=== PATIENT | male | born 1970 | race Two or more races ===

== ENCOUNTER 2020-07-22 07:35 | Emergency (ER) | payer MEDICARE, OTHER ==
[~2020-07-22] VITALS: Ht 172.7 cm; Wt 86.2 kg
[2020-07-22] MEDS ORDERED: WELLBUTRIN (07:44)
[2020-07-22] MEDS ORDERED: LISINOPRIL (07:44)
[2020-07-22] MEDS ORDERED: KLONOPIN (07:44)
[2020-07-22] MEDS ORDERED: LORAZEPAM 2 MG/1 ML VIAL IV ONE (08:00)
[2020-07-22] MEDS ORDERED: IV NORMAL SALINE 1000 ML BAG IV ONE (08:00)
[2020-07-22 08:01] LABS: BASOPHILS % (AUTO) 0.7 % (0.0-2.0); EOSINOPHILS # (AUTO) 0.2 K/uL (0.0-0.7); EOSINOPHILS % (AUTO) 3.4 % (0.0-7.0); HEMATOCRIT 43.2 % (36.7-47.1); HEMOGLOBIN 14.7 g/dL (12.5-16.3); LYMPHOCYTES # (AUTO) 1.6 K/uL (20.0-40.0); LYMPHOCYTES % (AUTO) 21.4 % (20.5-51.5); MEAN CORPUSCULAR HEMOGLOBIN 30.5 uug (23.8-33.4); MEAN CORPUSCULAR HGB CONC 34 g/dL (32.5-36.3); MEAN CORPUSCULAR VOLUME 89.5 fL (73.0-96.2); MONOCYTES # (AUTO) 0.5 K/uL (2.0-10.0); MONOCYTES % (AUTO) 7.1 % (0.0-11.0); NEUTROPHILS # (AUTO) 4.9 K/uL (1.8-8.9); NEUTROPHILS % (AUTO) 67.4 % (38.5-71.5); PLATELET COUNT (AUTO) 341 K/uL (152-348); RED BLOOD CELL COUNT(AUTO) 4.83 MIL/uL (4.06-5.63); WHITE BLOOD COUNT (AUTO) 7.3 K/uL (3.6-10.2)
[2020-07-22] MEDS ORDERED: LORAZEPAM 2 MG/1 ML VIAL ONE (08:08)
[2020-07-22 08:13] LABS: BILIRUBIN,DIRECT 0.1 mg/dL (0.0-0.2); BILIRUBIN,TOTAL 0.5 mg/dL (0.2-1.0); CREATININE 1.5 mg/dL (0.6-1.3); POTASSIUM 4.2 mmol/L (3.5-5.1); TOTAL PROTEIN, SERUM 7.8 g/dL (6.4-8.2)
--- NOTE | 2020-07-22 08:31 | NUR ---
Patient discharged to home in stable condition. Written and verbal after care instructions given. Patient verbalizes understanding of instructions. Stressed follow up or return to ER for worsening s/s. pt walks in steady gait. pt deneis any pain or dizziness. pt will use [employer] to go home.
[2020-07-22 08:32] VITALS: BP 121/81
== END 2020-07-22 08:35 | disposition home or self-care (01) ==
LOC: ER 07:35
DX: G40.909 Epilepsy, unspecified, not intractable, without status epilepticus (principal); R94.31 Abnormal electrocardiogram [ECG] [EKG]; R00.0 Tachycardia, unspecified; F32.9 Major depressive disorder, single episode, unspecified; Z79.899 Other long term (current) drug therapy; Z91.14 Patient's other noncompliance with medication regimen
CPT/HCPCS: 36415; 80048; 80076; 83690; 84484; 85025; 93005; 96374; 99284; J2060; 70030-TC; A4663; J7030

== ENCOUNTER 2020-11-13 13:57 | Emergency (ER) | payer MEDICARE, OTHER ==
[~2020-11-13] VITALS: Ht 182.9 cm; Wt 79.4 kg
[~2020-11-13 13:57] MED LIST: KLONOPIN; LISINOPRIL; WELLBUTRIN
--- NOTE | 2020-11-13 14:14 | NUR ---
at bedside for assessment
[2020-11-13] MEDS ORDERED: LORAZEPAM 0.5 MG TABLET PO ONE (14:15)
[2020-11-13] MEDS ORDERED: LORAZEPAM 1 MG TABLET ONE (14:29)
[2020-11-13 14:37] LABS: BASOPHILS # (AUTO) 0.1 K/uL (0.0-8.0); BASOPHILS % (AUTO) 0.8 % (0.0-2.0); EOSINOPHILS # (AUTO) 0.5 K/uL (0.0-0.7); EOSINOPHILS % (AUTO) 5.7 % (0.0-7.0); HEMATOCRIT 41.4 % (36.7-47.1); HEMOGLOBIN 14.3 g/dL (12.5-16.3); LYMPHOCYTES # (AUTO) 2.8 K/uL (20.0-40.0); MEAN CORPUSCULAR HGB CONC 35 g/dL (32.5-36.3); MEAN CORPUSCULAR VOLUME 86.7 fL (73.0-96.2); MONOCYTES # (AUTO) 0.9 K/uL (2.0-10.0); MONOCYTES % (AUTO) 9.6 % (0.0-11.0); NEUTROPHILS # (AUTO) 4.6 K/uL (1.8-8.9); NEUTROPHILS % (AUTO) 51.9 % (38.5-71.5); PLATELET COUNT (AUTO) 323 K/uL (152-348); RED BLOOD CELL COUNT(AUTO) 4.77 MIL/uL (4.06-5.63); WHITE BLOOD COUNT (AUTO) 8.9 K/uL (3.6-10.2)
[2020-11-13 14:40] LABS: CREATININE 1.2 mg/dL (0.6-1.3); POTASSIUM 4.3 mmol/L (3.5-5.1)
--- NOTE | 2020-11-13 15:27 | NUR ---
Patient discharged to home in stable condition. No signs of acute distress Written and verbal after care instructions given. Took all belongings, not ambulating wiht steady gait. Patient verbalizes understanding of instructions. Stressed follow up or return to ER for worsening s/s.
[2020-11-13 15:29] VITALS: BP 124/79
--- NOTE | 2020-11-13 15:29 | NUR ---
Patient discharged to home in stable condition. Written and verbal after care instructions given. Patient verbalizes understanding of instructions. Stressed follow up or return to ER for worsening s/s.
== END 2020-11-13 15:29 | disposition home or self-care (01) ==
LOC: ER 13:57
DX: F41.9 Anxiety disorder, unspecified (principal); G40.909 Epilepsy, unspecified, not intractable, without status epilepticus; F32.9 Major depressive disorder, single episode, unspecified; Z79.899 Other long term (current) drug therapy
CPT/HCPCS: 36415; 85025; A4663

== ENCOUNTER 2021-03-09 18:42 | Emergency (ER) | payer MEDICARE, OTHER ==
[~2021-03-09] VITALS: Ht 172.7 cm; Wt 77.1 kg
--- NOTE | 2021-03-09 19:03 | NUR ---
PT IS IN ROOM #1A. DR IDAMOND EVALUATED THE PT.
[2021-03-09] MEDS: TDAP DIPH,PERTUSS,TET VAC/PF 0.5 ML DISP.SYRIN IM ONE (19:40)
[2021-03-09] MEDS ORDERED: TDAP DIPH,PERTUSS,TET VAC/PF 0.5 ML DISP.SYRIN IM ONE (19:41)
--- NOTE | 2021-03-09 19:41 | NUR ---
PATIENT OUT OF UNIT FOR CT SCAN WITH NO DISTRESS NOTED.
[2021-03-09] MEDS ORDERED: IBUP-1957 PO (20:15)
[2021-03-09 20:35] VITALS: BP 128/80
== END 2021-03-09 20:35 | disposition home or self-care (01) ==
LOC: ER 18:42
DX: S01.81XA Laceration without foreign body of other part of head, initial encounter (principal); W01.10XA Fall on same level from slipping, tripping and stumbling with subsequent striking against unspecified object, initial encounter; Y92.89 Other specified places as the place of occurrence of the external cause; G40.909 Epilepsy, unspecified, not intractable, without status epilepticus; F32.9 Major depressive disorder, single episode, unspecified; Z79.899 Other long term (current) drug therapy
CPT/HCPCS: 70450; 90715; A4663

== ENCOUNTER 2021-04-14 06:01 | Emergency (ER) | payer MEDICARE, OTHER ==
[~2021-04-14] VITALS: Ht 167.6 cm; Wt 77.1 kg
[~2021-04-14 06:01] MED LIST changes: +IBUP-1957 PO
[2021-04-14] MEDS ORDERED: BUPR-319 PO (06:37)
[2021-04-14] MEDS ORDERED: zyprexa PO (06:37)
[2021-04-14] MEDS ORDERED: LIDOCAINE VISCUS 2% 15 ML UDC MM ONE (06:45)
[2021-04-14] MEDS ORDERED: MAG HYDROX/AL HYDROX/SIMETH 30 ML LIQUID UDC PO ONE (06:45)
[2021-04-14] MEDS ORDERED: DICYCLOMINE HCL LIQ 10 MG/5 ML UDC PO ONE (06:45)
[2021-04-14] MEDS ORDERED: MAG HYDROX/AL HYDROX/SIMETH 30 ML LIQUID UDC ONE (07:01)
[2021-04-14] MEDS ORDERED: LIDOCAINE VISCUS 2% 15 ML UDC ONE (07:01)
[2021-04-14] MEDS ORDERED: DICYCLOMINE HCL LIQ 10 MG/5 ML UDC ONE (07:01)
--- NOTE | 2021-04-14 07:05 | NUR ---
Pt taken to CT
[2021-04-14 07:07] LABS: *BILIRUBIN,URIN 1+ (NEGATIVE); *BLOOD, URINE NEGATIVE (NEGATIVE); *CLARITY,URINE CLEAR (CLEAR); *COLOR,URINE YELLOW (YELLOW); *KETONES,URINE 2+ (NEGATIVE); HEMATOCRIT 44.1 % (36.7-47.1); LEUKOCYTE ESTERASE ,URINE NEGATIVE (NEGATIVE); MEAN CORPUSCULAR HEMOGLOBIN 30.5 uug (23.8-33.4); MEAN CORPUSCULAR VOLUME 87.4 fL (73.0-96.2); NITRITE, URINE NEGATIVE (NEGATIVE); PLATELET COUNT (AUTO) 308 K/uL (152-348); UGLUCOSE NEGATIVE (NEGATIVE)
[2021-04-14 07:10] LABS: CREATININE 1.1 mg/dL (0.6-1.3); POTASSIUM 3.6 mmol/L (3.5-5.1)
[2021-04-14 07:20] LABS: BILIRUBIN,DIRECT 0.2 mg/dL (0.0-0.2); BILIRUBIN,TOTAL 0.6 mg/dL (0.2-1.0); TOTAL PROTEIN, SERUM 7.9 g/dL (6.4-8.2)
--- NOTE | 2021-04-14 07:47 | NUR ---
Patient is resting comfortably on gurney with eyes closed, respiration:easy, NAD, pending results and disposition.
--- NOTE | 2021-04-14 08:48 | NUR ---
Patient is sleeping comfortably on gurney, easily arousable, OX4 when awake, pending disposition.
--- NOTE | 2021-04-14 09:24 | NUR ---
Patient discharged to home in stable condition with brisk steady gait. Written and verbal after care instructions given to patient. Patient verbalized understanding and compliance of instructions. Stressed follow up with primary doctor and neurologist or return to ER for worsening s/s.
== END 2021-04-14 09:24 | disposition home or self-care (01) ==
LOC: ER 06:06
DX: S09.90XA Unspecified injury of head, initial encounter (principal); W19.XXXA Unspecified fall, initial encounter; Y92.89 Other specified places as the place of occurrence of the external cause; R19.7 Diarrhea, unspecified; R10.13 Epigastric pain; R94.31 Abnormal electrocardiogram [ECG] [EKG]; G40.909 Epilepsy, unspecified, not intractable, without status epilepticus; F32.9 Major depressive disorder, single episode, unspecified; F41.9 Anxiety disorder, unspecified
CPT/HCPCS: 36415; 70450; 83690; 85025; 93005; A4663